=== PATIENT | female | born 1970 | race Two or more races ===

== ENCOUNTER 2017-08-26 10:43 | Outpatient (CLI) | payer OTHER | END 2017-08-26 11:02 | disposition home or self-care (01) | LOC: MAMO-SONO 10:43 | DX: N60.11 Diffuse cystic mastopathy of right breast (principal); N60.12 Diffuse cystic mastopathy of left breast; Z80.3 Family history of malignant neoplasm of breast ==

== ENCOUNTER 2021-01-11 14:36 | Emergency (ER) | payer OTHER ==
[~2021-01-11] VITALS: Ht 167.6 cm; Wt 90.3 kg
[2021-01-11] MEDS ORDERED: ATACAND32 MG (14:46)
[2021-01-11] MEDS ORDERED: NIFEDIPINE20 MG (14:46)
== END 2021-01-11 16:55 | disposition home or self-care (01) ==
LOC: ER 14:36
DX: M76.892 Other specified enthesopathies of left lower limb, excluding foot (principal); Q66.89 Other specified congenital deformities of feet

== ENCOUNTER 2021-07-28 09:01 | Emergency (ER) | payer OTHER ==
[~2021-07-28] VITALS: Ht 167.6 cm; Wt 99.8 kg
[~2021-07-28 09:01] MED LIST: ATACAND32 MG; NIFEDIPINE20 MG
[2021-07-28] MEDS ORDERED: NIFEDIPINE ER60 M1 PO (09:07)
== END 2021-07-28 10:25 | disposition home or self-care (01) ==
LOC: ER 09:01
DX: M77.8 Other enthesopathies, not elsewhere classified (principal); E11.9 Type 2 diabetes mellitus without complications; Z79.84 Long term (current) use of oral hypoglycemic drugs; I10 Essential (primary) hypertension

== ENCOUNTER 2021-12-22 07:58 | Outpatient (CLI) | payer OTHER ==
[~2021-12-22 07:58] MED LIST changes: +NIFEDIPINE ER60 M1 PO
== END 2021-12-22 08:10 | disposition home or self-care (01) ==
LOC: NUCLEAR 07:58
PROVIDERS: ATTEND General Practice
DX: N95.1 Menopausal and female climacteric states (principal); E21.3 Hyperparathyroidism, unspecified; M81.0 Age-related osteoporosis without current pathological fracture
CPT/HCPCS: 77080; 78072; A9500

== ENCOUNTER 2022-10-16 00:03 | Emergency (ER) | payer OTHER ==
[~2022-10-16] VITALS: Ht 167.6 cm; Wt 97.5 kg
[~2022-10-16 00:03] MED LIST changes: +CENTRUM PO; +PERCOCET 5-3251 EACH PO; +PROCARD PO; +TOPIRAMATE25 MG PO; +VITAMIN C500 M6 PO; +VITAMIN D PO; +[UNRECOGNIZED DRUG - OTHER] PO
[2022-10-16] MEDS ORDERED: NIFEDIPINE20 MG PO (00:25)
== END 2022-10-16 04:26 | disposition home or self-care (01) ==
LOC: ER 00:03
DX: R10.11 Right upper quadrant pain (principal)

== ENCOUNTER → 2022-12-17 | Outpatient (CLI) | payer OTHER ==
[~2022-12-17] MED LIST changes: +NIFEDIPINE20 MG PO
== END | disposition home or self-care (01) ==
LOC: RAD 13:48
PROVIDERS: ATTEND Orthopaedic Surgery
DX: M25.511 Pain in right shoulder (principal)